=== PATIENT | female | born 1970 | race Asian ===

== ENCOUNTER 2023-04-21 12:14 | Day surgery (SDC) | payer OTHER, SELFPAY ==
[2023-04-19 08:41] VITALS: BMI 26.2
[2023-04-21] VITALS (7 sets, daily range): BP systolic 81–130; BP diastolic 45–77; PULSE 71–88; RESP 16; TEMP 36.1–36.8; O2SAT 88–100; BMI 26.2
--- NOTE | 2023-04-21 | PATH_ITS ---
[facility] Accession Number: [id number] No. of containers..01 Tissue . 01 Material submitted: . body - FIBROID AND CURRETTINGS . 01 Diagnosis: Fibroid And Curettings: Fragments of benign leiomyoma. Detached strips of ectocervical epithelium with low-grade squamous intraepithelial lesion. No diagnostic features of high-grade dysplasia identified. No malignancy. [facility] 05/03/2023 1010 Local . 01 Electronically signed: . Hope Alcantara MD, Pathologist NPI- [id number] . 01 Gross description: . The specimen is received in formalin labeled with the patient's name, , and fibroid and curettings, and consists of an irregular sepulveda, rubbery tissue fragment measuring 3.5 x 1.6 x 1.1 cm. The specimen is inked blue. Sectioning reveals a white, whorled, rubbery cut surface. Also within the container are multiple free floating sepulveda to red-brown soft tissue fragments aggregating to 1.0 x 0.8 x 0.1 cm. The specimen is submitted entirely as follows: A1-A2: Entire rubbery nodule. A3: Remaining filtered fragments. ([id number]) /LESLIE 04/23/2023 2157 Local . 01 Pathologist provided ICD-10: D25.9, N87.0, N92.1, Z79.890 . 01 CPT . 747505 Specimen Comment: A courtesy copy of this report has been sent to [phone] Performed at: 01 [facility] [address] [place] [address] [address] [facility], [place], [place] [id number] MD Arsh Garner MD Phone: [phone]
[2023-04-21] MEDS: LACTATED RINGERS 1,000 ML 21 ML IV (12:48)
--- NOTE | 2023-04-21 13:31 | PM.GYNHP.1 ---
History of Present Illness History of Present Illness Reason for admission: vaginal bleeding Narrative: Jade May is a 52 year old female 3 para 0 with menorrhagia and a submucosal fibroid. She presents for a D&C hysteroscopy, MyoSure removal of the fibroid, and NovaSure endometrial ablation. [facility]LY [facility], [facility] Medical History (Updated 04/19/23 @ 08:45 by Savi Vallejo RN) Bipolar disorder (2002) Surgical History (Updated 04/27/21 @ 23:00 by Emily Toledo) History of appendectomy (~1992) Social History household members: spouse Smoking Status: Former smoker alcohol intake: current Meds Home Medications and Allergies Home Medications Medication Instructions Recorded Confirmed Type aripiprazole 2 mg tablet (Abilify) 2 mg PO DAILY 05/08/21 04/21/23 History lamotrigine 200 mg tablet 200 mg PO BID 05/08/21 04/21/23 History (Lamictal) Allergies Allergy/AdvReac Type Severity Reaction Status Date / Time No Known Drug Allergies Allergy Unverified 01/21/23 14:27 Exam Vital Signs (past 8 hours): - 04/21/23 12:21 Temperature 97.5 F L Pulse Rate 71 Respiratory Rate 16 Blood Pressure 118/77 Pulse Oximetry 100 Oxygen Delivery Method Room Air Oxygen Delivery Method Room Air Narrative Exam Narrative: HEENT: No thyromegaly, no anterior cervical or supraclavicular lymphadenopathy. Lungs:Clear to auscultation bilaterally, no wheezes. Cardiovascular: Regular rate and rhythm, no murmurs, rubs, or gallops. Abdomen: Well-healed scars. No hepatosplenomegaly. No masses palpable. External genitalia: Normal Vagina: Normal Cervix: Normal Bimanual exam: 8 Week size anteverted uterus. Mobile. Extremities: No edema Assessment & Plan Assessment & Plan narrative: Assessment: 52-year-old 3 para 0 with a submucosal fibroid and menorrhagia Plan: D&C hysteroscopy with MyoSure removal of the submucosal fibroid, and a NovaSure endometrial ablation The risks, benefits, and alternatives to the procedure were explained to the patient. The risks including bleeding, infection, and uterine perforation. She understands these risks and agrees to proceed. A full par Q was held and consent form was signed.
--- NOTE | 2023-04-21 13:39 | PM.PREOP ---
Pre-operative Note Interval Note History & Physical reviewed/Exam performed by Physician: Yes Changes to H&P: No H&P completed within 30 days and has changed as indicated here:: 04/21/23
--- NOTE | 2023-04-21 14:12 | SUR.OPER ---
Lithotomy on padded OR bed, head on pillow, arms secured on padded arm boards at <90 degrees abduction. Legs secured in padded yellow fins stirrups.
--- NOTE | 2023-04-21 14:36 | SUR.OPER ---
Utilized Myosure during procedure. Unable to chart under equipment.
--- NOTE | 2023-04-21 15:34 | PM.GYNOP.1 ---
Operative Date/Time/Diagnoses Date of procedure: 04/21/23 Time of procedure: 15:35 Pre-op diagnosis: Menorrhagia Submucosal fibroid Post-op diagnosis: same Procedure & Clinicians Procedure: Procedures Operation Date: 04/21/23 13:30 Actual Procedure Side Surgeon p D&C Hysteroscopy, myosure resection of fibroid, Novasure Ablation, gel foam and stitch in the cervix Ching Johnson MD Indications: 52-year-old 3 para 0 with menorrhagia and a submucosal fibroid Surgeon: Ching Johnson Anesthesia Type: General (LMA) Operative Notes Findings: 7 week size anteverted uterus Both fallopian tube ostia observed Fundal subserosal fibroid measuring 1-1/2 to 2 cm Large fibroid prolapsing out of the cervix originating in the uterus measuring 4 cm x 1-1/2 cm Closure Type: not applicable Specimen(s): other (Fibroids, endometrial curettings) Estimated blood loss (mL): 20 Blood products transfused: none Procedure in detail: After informed consent was obtained, the patient was taken to the operating room where she was placed in the dorsal supine position. After LMA general anesthesia was achieved, she was placed in the dorsal lithotomy position, and prepped and draped in the usual sterile fashion. A time-out was performed. A bivalve speculum was placed into the vagina and the anterior lip of the cervix was grasped with a single-tooth tenaculum. There was seen to be a large fibroid protruding through the cervix dilating the cervix approximately 1 cm. The fibroid was grasped and twisted with a ring forcep and removed. The hysteroscope passed easily into the endometrial cavity. Both fallopian tube ostia were observed. Using the MyoSure XL, the base of the fibroid was resected. There was also a submucosal fibroid at the fundus of the uterus. An attempt was made to resect this with the MyoSure XL, but had to be switched to the MyoSure reach in order to completely resect. The hysteroscope was removed from the uterus. The uterus was sounded from the internal os to the fundus and measured 5 cm. This was set on the NovaSure catheter and the generator. The NovaSure catheter passed easily into the endometrial cavity and was opened. The width was 3.5 cm. This indicated a power of 96 w. The cervix was capped, the cavity assessment was performed and passed. The cycle was initiated and lasted 36 seconds. At the completion of the cycle the cervix was uncapped, the NovaSure catheter was closed and removed from the uterus. There was some brisk bleeding coming from the cervix. A Gelfoam was placed into the cervix. A large stitch using 2-0 chromic was placed anterior to posterior in a [id number] suture due to bleeding. Hemostasis was achieved. Sponge, lap, and instrument counts were correct x2. The patient tolerated the procedure well, and was taken to PACU in stable condition. Complications: none Post-operative Condition: stable Disposition: PACU Plan for aftercare: Home after recovery
[2023-04-21] MEDS: OXYCODONE IR 5 MG TABLET PO (16:02)
[2023-04-21] MEDS: ONDANSETRON 4 MG/2 ML INJ IV (16:25)
== END 2023-04-21 16:41 | disposition home or self-care (01) ==
PROVIDERS: PCP Family Medicine; Referring Provider Obstetrics & Gynecology; Visit Provider Obstetrics & Gynecology
PROC: 0U5B8ZZ Destruction of Endometrium, Via Natural or Artificial Opening Endoscopic (ICD-10-PCS; CPT 58563; principal; 2023-04-21 13:30)
DX: N92.1 Excessive and frequent menstruation with irregular cycle (principal); Z79.890 Hormone replacement therapy; D25.2 Subserosal leiomyoma of uterus; N87.0 Mild cervical dysplasia
CPT/HCPCS: 58561; 58563; J1100; J2250; J2405; J2704; J3010